=== PATIENT | female | born 1955 | race Caucasian/White ===

== ENCOUNTER 2024-02-28 07:22 | Inpatient (IN) ==
--- NOTE | 2024-01-19 13:44 | PAT Medication Instructions ---
Medication Instructions Date of Service January 19, 2024 Home Medications coQ10 (ubiquinol) 200 mg capsule 200 mg PO QAM hydrochlorothiazide 50 mg tablet 50 mg PO QAM potassium chloride 20 mEq tablet,extended release 40 meq PO QAM ashwagandha root extract 300 mg tablet 1,400 mg PO QAM magnesium oxide 500 mg PO DAILY tramadol 50 mg tablet 50 mg PO BID Pain phentermine 37.5 mg capsule 37.5 mg PO QAM ibuprofen-diphenhydramine citrate 200 mg-38 mg tablet (Advil PM) 2 cap PO HS PRN Sleep MEDICATION INSTRUCTIONS: ASK your surgeon for instructions ibuprofen-diphenhydramine citrate 200 mg-38 mg tablet (Advil PM) 2 cap PO HS PRN Sleep STOP taking 2 weeks before surgery ashwagandha root extract 300 mg tablet 1,400 mg PO QAM coQ10 (ubiquinol) 200 mg capsule 200 mg PO QAM DO NOT take the morning of surgery magnesium oxide 500 mg PO DAILY hydrochlorothiazide 50 mg tablet 50 mg PO QAM potassium chloride 20 mEq tablet,extended release 40 meq PO QAM Take morning of surgery With a small sip of water, OTHERWISE NOTHING TO EAT OR DRINK AFTER MIDNIGHT: tramadol 50 mg tablet 50 mg PO BID Pain Take evening before surgery tramadol 50 mg tablet 50 mg PO BID Pain Other Notes STOP TAKING 5 DAYS BEFORE SURGERY: phentermine 37.5 mg capsule 37.5 mg PO QAM If you have any questions please call us at [phone] or [phone] or [phone] or [phone]
--- NOTE | 2024-01-28 11:28 | Anesthesiology Consultation ---
Date of Service January 28, 2024 Assessment & Plan (1) Encounter for pre-operative examination: - Infectious disease screening: Per assessment on 01/28/24: No known recent infectious disease contacts or current infectious disease symptoms. - Phentermine instructions: Patient made aware to hold 5 days prior to surgery. - Anesthesia concern: Patient states that with remote back surgery, she was "out of it" after surgery (even when she returned home). States she believes it was related to reaction of medications used perioperatively and the psych meds that she was on at the time (which she states have since been discontinued). She wanted anesthesia to be aware of previous reaction. - Patient acceptable risk for surgery pending surgeon-ordered PCP clearance (Dr. Puckett, appt 02/17). History Surgery Operation Date: 02/28/24 09:45 Proposed Procedures p L4-S1 Decompression and Fusion, Hardware Removal L5-S1 - Pawel Mayberry, Height/Weight Height: 5 ft 4 in Weight: 78.2 kg Allergies Allergy/AdvReac Type Severity Reaction Status Date / Time codeine Allergy Mild Chills, Verified 01/26/24 10:40 "couldn't move" lorazepam AdvReac Mild "Couldn't Verified 01/26/24 10:40 focus, out of it" Medications Home Medications Medication Instructions Recorded Confirmed Last Taken coQ10 (ubiquinol) 200 mg capsule 200 mg PO QAM 08/05/22 01/19/24 Unknown hydrochlorothiazide 50 mg tablet 50 mg PO QAM 08/05/22 01/19/24 Unknown potassium chloride 20 mEq 40 meq PO QAM 08/05/22 01/19/24 Unknown tablet,extended release ashwagandha root extract 300 mg 1,400 mg PO QAM 10/13/23 01/19/24 Unknown tablet magnesium oxide 500 mg PO DAILY 10/13/23 01/19/24 Unknown tramadol 50 mg tablet 50 mg PO BID Pain 10/13/23 01/19/24 Unknown phentermine 37.5 mg capsule 37.5 mg PO QAM 10/27/23 01/19/24 Unknown ibuprofen-diphenhydramine citrate 2 cap PO HS PRN Sleep 01/19/24 01/19/24 Unknown 200 mg-38 mg tablet (Advil PM) Past Medical History Medical History Anxiety Depression Dyslipidemia Fibromyalgia GERD (gastroesophageal reflux disease) Hearing deficit "lost her hearing aide" History of kidney stones History of migraine Ocular History of pulmonary embolism "following a spinal tap" No problems since History of TMJ disorder No clicking/locking HLD (hyperlipidemia) Hx of sleep apnea Patient had trouble tolerating device- no current device IBS (irritable bowel syndrome) Obesity Overactive bladder Neurostimulator in place Presence of neurostimulator Bladder (present) Will bring remote dos Spinal stenosis Thyroid nodule no issues Exercise / Class Metabolic Activity III < 4 Walking/Shop/Light housework (one FS: No CP, no SOB) Past Surgical History Surgical History History of Achilles tendon repair (2014) left History of anesthesia reaction Reaction several years ago: wakes up emotional, depressed, anxious > "feels like I can't breathe" History of cervical spinal surgery (2014) C6-7 History of colonoscopy History of hysterectomy History of laparoscopy x2 for endometriosis History of lithotripsy (1989) History of lumbar fusion (2016) L5-S1 History of lumpectomy Right breast - benign History of placement of ear tubes History of shoulder surgery Right History of surgery Interstim Therapy History of tonsillectomy Hx of LASIK Slow to wake up after anesthesia Past Anesthesia History No Family Hx of Anesthesia Complications and Other (Slow to wake, wakes up emotional, depressed, anxious > "feels like I can't breathe") History of PONV No Hx of PONV and No Hx of Motion Sickness Social History Smoking Status: Never smoker Do You Dip or Chew Tobacco: No Hx Alcohol Use: Yes alcohol intake frequency: a few times a month Hx Substance Use: No substance use type: does not use Review of Systems Ongoing intermittent episodes of shortness of breath over the past 2+ years. Signficant workup including pulmonary evaluation, PFTs, stress test, echo unremarkable. At baseline. Patient denies chest pain, fever, chills, cough, wheezing, palpitations. Physical Exam Vital Signs BP 116/68 P 64 TEMP 98.0 SP02 96%RA RESP 16 Physical Full cervical extension range of motion. Full TMJ range of motion. TMD 3 finger breaths Mallampati Score III Dentition: missing sides/molars Lungs: clear throughout to auscultation Cardiac: regular rate and rhythm, no murmurs noted Spine: normal Carotid arteries: negative bruit Extremities: no LE edema Lab Results Anesthesia Preop Results Results Anesthesia Widget: WBC 5.42 K/ul (4.8-10.8) 01/28/24 Hgb 15.4 g/dl (12.0-16.0) 01/28/24 Hct 47.7 % (37.0-47.0) H 01/28/24 Plt 295 K/uL (130-400) 01/28/24 Na 139 mmol/L (136-145) 01/28/24 K 4.4 mmol/L (3.5-5.1) 01/28/24 Cl 102 mmol/L (98-107) 01/28/24 CO2 30 mmol/L (21-32) 01/28/24 BUN 15 mg/dl (6-23) 01/28/24 Creat 0.74 mg/dl (0.6-1.2) 01/28/24 Glucose Level 90 mg/dl (70-99(Fasting)) 01/28/24 PT 10.9 Seconds (9.0-12.0) 01/28/24 PTT 28 Seconds (21-31) 01/28/24 INR 1.0 (0.9-1.1) 01/28/24 Urine Color Yellow 01/28/24 Urine Appearance Clear (Clear) 01/28/24 Urine pH 6.5 (4.5-7.5) 01/28/24 Urine Specific Ideal 1.007 (1.000-1.030) 01/28/24 Urine Protein Negative (Negative) 01/28/24 Urine Glucose (UA) Negative (Negative) 01/28/24 Urine Ketones Negative (Negative) 01/28/24 Urine Blood Negative (Negative) 01/28/24 Urine Nitrite Negative (Negative) 01/28/24 Urine Bilirubin Negative (Negative) 01/28/24 Urine Urobilinogen Negative (Negative) 01/28/24 Urine Leukocyte Esterase Negative (Negative) 01/28/24 Blood Type O Positive 01/28/24 Antibody Screen NEGATIVE 01/28/24 Testing Electrocardiogram Date: 01/28/24 NSR at 63bpm. "Normal ECG" Chest X-Ray Date: 01/28/24 FINDINGS: No lines and tubes are seen. The cardiomediastinal silhouette is normal. The lungs are clear. No evidence of pleural effusion or pneumothorax. IMPRESSION: No acute chest disease. Echocardiogram Date: 08/05/22 EF 55-60% No LV wall motion abnormalities Grade I diastolic dysfunction No significant valvular pathology Stress Test Date: 08/05/22 Lexiscan MPHR 54% Not indicative of ischemia Negative for ischemia and/or prior infarction, no transient ischemic dilatation EF 72% Pulmonary Function Test Date: 07/15/22 No significant expiratory airflow obstruction No significant change in airflow following inhaled bronchodilator Maximum voluntary ventilation is normal No restrictive pulmonary process Flow volume loop has a normal configuration
[2024-02-28] MEDS: LACTATED RINGER'S 1,000 ML IV SCH ×2 (07:50→13:05)
[2024-02-28] MEDS: CeleBREX 200 MG CAP PO SCH (07:50)
[2024-02-28] MEDS: GABAPENTIN 300 MG CAP PO SCH (07:50)
[2024-02-28] MEDS: LR 60ML/HR IV SCH (07:51)
[2024-02-28] MEDS ORDERED: MIDAZOLAM HCL 1 MG/ML 2ML VIAL ONE (08:07)
[2024-02-28] MEDS ORDERED: HYDROmorphone INJ 2 MG/ML SYR/VIAL ONE (08:07)
[2024-02-28] MEDS ORDERED: LIDOCAINE 2% 2 ML VIAL/AMP(20MG/ML) INFIL ONE (08:09)
[2024-02-28] MEDS ORDERED: ROCURONIUM BROMIDE 10 MG/ML 5 ML VIAL IV ONE ×2 (08:09→09:29)
[2024-02-28] MEDS ORDERED: PROPOFOL IV EMULSION 10 MG/ML 20 ML VIAL IV ONE (08:09)
[2024-02-28] MEDS ORDERED: GLYCOPYRROLATE 0.2 MG/ML VIAL ONE (08:09)
[2024-02-28] MEDS ORDERED: ONDANSETRON INJ 2 MG/ML 2 ML VIAL ONE (08:09)
[2024-02-28] MEDS ORDERED: DEXAMETHASONE SOD INJ 4 MG/ML VIAL ONE (08:09)
[2024-02-28] MEDS ORDERED: ePHEDrine sulfate 50 MG/ML AMP IV PRN ×2 (08:26→11:50)
[2024-02-28] MEDS ORDERED: ONDANSETRON INJ 2 MG/ML 2 ML VIAL IV PRN ×2 (08:26→13:18)
[2024-02-28] MEDS ORDERED: ATROPINE SULFATE 0.1 MG/ML 10ML SYR IV PRN ×2 (08:26→11:50)
--- NOTE | 2024-02-28 08:36 | History & Physical Bridge Note ---
Date of Service February 28, 2024 History & Physical Bridge Note I have examined the patient, reviewed the History & Physical and in the interval since the performance of the History & Physical I have noted the following changes of clinical significance: no changes noted
--- NOTE | 2024-02-28 08:37 | History & Physical Report ---
Date of Service February 28, 2024 Assessment & Plan (1) Neurogenic claudication due to lumbar spinal stenosis: Plan: L4-S1 decompression and fusion, hardware removal L5-S1 History of Present Illness Chief Complaint: Back and leg pain Primary Care Provider: Johan Puckett This is a 68-year-old female who presents with worsening back and bilateral leg pain after failing course of nonoperative care she is here for surgical invention. Allergies Allergy/AdvReac Type Severity Reaction Status Date / Time codeine Allergy Mild Chills, Verified 02/28/24 07:39 "couldn't move" lorazepam AdvReac Mild "Couldn't Verified 02/28/24 07:39 focus, out of it" Home Medications Medication Instructions Recorded Confirmed Type coQ10 (ubiquinol) 200 mg capsule 200 mg PO QAM 08/05/22 01/19/24 History hydrochlorothiazide 50 mg tablet 50 mg PO QAM 08/05/22 01/19/24 History potassium chloride 20 mEq 40 meq PO QAM 08/05/22 02/28/24 History tablet,extended release ashwagandha root extract 300 mg 1,400 mg PO QAM 10/13/23 01/19/24 History tablet magnesium oxide 500 mg PO DAILY 10/13/23 01/19/24 History tramadol 50 mg tablet 50 mg PO BID Pain 10/13/23 02/28/24 History phentermine 37.5 mg capsule 37.5 mg PO QAM 10/27/23 01/19/24 History ibuprofen-diphenhydramine citrate 2 cap PO HS PRN Sleep 01/19/24 01/19/24 History 200 mg-38 mg tablet (Advil PM) Past Med/Surg History Problem List (Updated 02/28/24 @ 08:36 by Pawel Mayberry DO) Neurogenic claudication due to lumbar spinal stenosis Overweight with body mass index (BMI) 25.0-29.9 Dyslipidemia Encounter for pre-operative examination Cervical stenosis of spinal canal (Acute) Medical History Anxiety Depression Dyslipidemia Fibromyalgia GERD (gastroesophageal reflux disease) Hearing deficit "lost her hearing aide" History of kidney stones History of migraine Ocular History of pulmonary embolism 1990s "following a spinal tap" No problems since History of TMJ disorder No clicking/locking HLD (hyperlipidemia) Hx of sleep apnea Patient had trouble tolerating device- no current device IBS (irritable bowel syndrome) Obesity Overactive bladder Neurostimulator in place Presence of neurostimulator Bladder (present) Will bring remote dos Spinal stenosis Thyroid nodule no issues Surgical History History of Achilles tendon repair (2014) left History of anesthesia reaction Reaction several years ago: wakes up emotional, depressed, anxious > "feels like I can't breathe" History of cervical spinal surgery (2014) C6-7 History of colonoscopy History of hysterectomy History of laparoscopy x2 for endometriosis History of lithotripsy (1989) History of lumbar fusion (2016) L5-S1 History of lumpectomy Right breast - benign History of placement of ear tubes History of shoulder surgery Right History of surgery Interstim Therapy History of tonsillectomy Hx of LASIK Slow to wake up after anesthesia Social History Smoking Status: Never smoker Second Hand Exposure: No; Do You Dip or Chew Tobacco: No; Tobacco Cessation Education Requested by Patient: No Hx Alcohol Use: Yes Hx Substance Use: No Preferred Language: Armenian Communication Ability: Effective Pipe Tester Required: No Beliefs That Will Affect Care: None Current Living Situation: Spouse Other Information That Helps Us Care for You: No Feels Safe at Home: Yes Safety Concerns: Feels Safe At This Time Assistive Devices: Contacts, Glasses and Hearing Aid - Bilateral Assistive Devices Comment: lost hearing aides Physical Exam Physical Exam: Patient is alert and oriented Heart regular in rhythm lungs clear Results & Data Results & Data Vital Signs (Past 12 Hours) Vital Signs Temp Pulse Resp BP Pulse Ox O2 Del Method 02/28/24 07:44 36.4 C L 75 20 134/69 98 Room Air
[2024-02-28] MEDS: ceFAZolin 2000MG 2,000 MG/15 ML SYR IV SCH ×2 (09:10→17:18)
[2024-02-28] MEDS ORDERED: SUGAMMADEX SODIUM 200 MG/2 ML VIAL IV ONE (09:28)
[2024-02-28] MEDS: BUPIVACAINE/EPINEPHRINE 0.25% 1:200,000 30 ML VIAL ONE (09:36)
[2024-02-28] MEDS ORDERED: PHENYLEPHRINE 100MCG/ML 10ML SYR IV ONE (09:45)
[2024-02-28] MEDS ORDERED: ePHEDrine sulfate 50 MG/5 ML SYR ONE (10:11)
[2024-02-28] MEDS ORDERED: SODIUM CHLORIDE 0.9% PF INJ 10 ML VIAL ONE (10:12)
[2024-02-28] MEDS: FLOSEAL HEMOSTATIC MATRIX 10ML TOP ONE (10:40)
[2024-02-28] MEDS: ceFAZolin 330 MG/ML 1 GM VIAL ONE (10:51)
--- NOTE | 2024-02-28 11:05 | Operative Report ---
Post Operative Report Pre & Post Diagnosis Operation Date: 02/28/24 09:05 Pre-Op Diagnosis: Neurogenic claudication due to lumbar spinal stenosis Spondylolisthesis L4-L5 Post-Op Diagnosis: Same I identified the patient and participated in the time-out.: Yes Procedure Operation Date: 02/28/24 09:05 Actual Procedures #1 removal of instrumentation L5-S1. #2 exploration of fusion L5-S1. #3 lumbar decompression with bilateral medial facetectomies and foraminotomies L3-L4 L4- L5. #4 posterior spinal fusion L4-5 per #5 placement of posterior instrumenta tion L4-S1. #6 interbody fusion L4-L5. #7 placement of Spira 11 x 26 mm x 2 at L4-5. #8 placement locally harvested morselized autograft in the posterior gutters. #9 placement infuse collagen sponge combined with Koros in the posterior lateral gutters and os design bone graft interbody space. #10 placement of versa wrap on exposed dura. Surgeon Pawel Mayberry, DO Stenotype Operator Yajaira Carpenter Estimated Blood Loss 50 Findings Consistent with Post-Op Diagnosis Specimens None Indications This is a 68-year-old female who presents above-mentioned diagnosis after failing course of nonoperative care she is here for surgical invention. Description of Procedure Patient met with identified informed consent obtained. Patient was then taken to the operative suite underwent patient placed in a prone position on the Kleber table top the Fernando frame. All bony promises well-padded eyes inspected to ensure no external pressure placed upon them. This point the lumbar spine was prepped and draped in normal sterile fashion. Sharp dissection with assistance of Bovie cautery was performed down to and exposing the lamina and transverse processes of L4 and instrumentation at L5 and S1 levels bilaterally. I then proceeded to remove the hardware. Explored the fusion mass noting it to be mature and intact. Informed complete laminectomy of L4 including bilateral medial facetectomies and foraminotomies addressing severe lateral recess and foraminal disease. This also included partial laminectomy of all 3 with bilateral medial facetectomies for complete decompression of the subarticular disease. Pedicle screws were then placed in L4-L5 and S1 levels bilaterally with assistance of fluoroscopy. By way of a transforaminal approach on the right a discectomy of L4-L5 was performed endplates guarded to subcortical bleeding bone and 11 x 26 mm Spira cage filled with os design bone graft tapped in position. Then proceeded to the left transforaminal region at L4-L5. I discectomy performed endplates guarded to subcortical mean bone and a second 11 x 26 mm spiral cage filled with Oxyzyme tapped in position. Appropriate size rods were then placed compressed locked into position bilaterally. The transverse processes of L4-L5 burred to subcortical bleeding bone. Infuse collagen sponge combined with Koros and local autograft placed in the posterior lateral gutters. Of versa wrap placed over the exposed dura. 15 round WILMER drain inserted. The incision was then closed with 1 Vicryl to fascia 2-0 Vicryl subcutaneously and 4-0 Monocryl for final skin closure. Steri-Strips sterile dressing placed. Patient waken taken PACU stable condition. Please note spinal cord monitoring was utilized at the procedure no changes noted. Lastly Yajaira Carpenter was present out the entire procedure and brought the patient positioning complex portions of the surgery and final skin closure. Im ordering 20 grams of Triple [place] Collagen Powder ([employer] Grow (FIG) [id number]) to treat an incision wound that was caused by a spine procedure. The incision is approximately 2 cm(W) x 4 cm(L) into the joint (D) in size and is a full thickness wound. Triple [place] collagen comes in 1 gram packets so 20 packets were ordered. Given the size of the wound, with light to moderate exudate I chose to order a 20 day supply. The patient will be provided instructions for proper application of the collagen wound kit. The patient will be asked to apply the collagen powder daily and then cover it with sterile dressings dispensed. Collagen was selected as I expect the collagen to attract monocytes and fibroblasts, act as a sacrificial substrate for MMPs, and ultimately proved a matrix for tissue and vessel growth. The collagen will act as a primary dressing in this scenario. It is medically necessary for proper healing of these wounds to improve bioavailability and contact with each wound surface, this is also to help prevent infection of wounds and promote healing ultimately leading to a better healing outcome and limit the risk of infection. I attest to the content of the Intraoperative Record and any orders documented therein. Any exceptions are noted below.
[2024-02-28] MEDS: fentaNYL citrate PF 100 MCG/2 ML VIAL IV PRN (11:27)
[2024-02-28] MEDS: HYDROmorphone INJ 2 MG/ML SYR/VIAL IV PRN (11:52)
[2024-02-28] MEDS: HYDROmorphone INJ 2 MG/ML SYR/VIAL ONE (12:06)
--- NOTE | 2024-02-28 12:34 | Anesthesiology Progress Note ---
Date of Service February 28, 2024 Anesthesia Post Procedure Vital Signs Vital Signs: Temp Pulse Pulse Resp BP Pulse Ox O2 Del Method 02/28/24 12:20 73 12 102/66 92 Nasal Cannula 02/28/24 12:10 76 17 108/59 L 99 Nasal Cannula 02/28/24 12:00 79 17 104/73 100 Nasal Cannula 02/28/24 11:50 61 18 117/63 100 Nasal Cannula 02/28/24 11:40 85 19 117/47 L 98 Nasal Cannula 02/28/24 11:30 81 14 127/74 98 Nasal Cannula 02/28/24 11:20 71 14 118/57 L 96 Oxymask 02/28/24 11:12 97.5 F L 64 17 111/58 L 98 Oxymask 02/28/24 07:44 97.5 F L 75 20 134/69 98 Room Air O2 Flow Rate 02/28/24 12:20 4 02/28/24 12:10 4 02/28/24 12:00 4 02/28/24 11:50 4 02/28/24 11:40 4 02/28/24 11:30 4 02/28/24 11:20 6 02/28/24 11:12 6 02/28/24 07:44 Pain Intensity Back: Pain Intensity: 6 Transfer of Care Handoff Completed per policy Notes Mental Status: alert / awake / arousable and participated in evaluation Patient Amnestic to Procedure: Yes Nausea / Vomiting: adequately controlled Pain: adequately controlled and improving with treatment Airway Patency, RR, SpO2: stable & adequate BP & HR: stable & adequate Hydration State: stable & adequate Anesthetic Complications: no major complications apparent and Pt Satisfied with anesthetic care
[2024-02-28] MEDS ORDERED: NALOXONE HCL 0.4 MG/1 ML VIAL/CARP IV PRN (13:18)
[2024-02-28] MEDS ORDERED: ALUMINUM/MAGNESIUM SUSP 30 ML UDC PO PRN (13:18)
[2024-02-28] MEDS ORDERED: hydrOXYzine HCl 25 MG TAB PO PRN (13:18)
[2024-02-28] MEDS ORDERED: ACETAMINOPHEN 500 MG TAB PO PRN (13:18)
[2024-02-28] MEDS ORDERED: METOCLOPRAMIDE HCL INJ 5 MG/ML 2 ML VIAL IV PRN (13:18)
[2024-02-28] MEDS ORDERED: SOD PHOSPHATE/SOD BIPHOSPHATE ENEMA 132 ML BTL PR PRN (13:18)
[2024-02-28] MEDS ORDERED: ONDANSETRON 4 MG OD TAB PO PRN (13:18)
[2024-02-28] MEDS ORDERED: bisacodyL 10 MG SUPP PR PRN (13:18)
[2024-02-28] MEDS ORDERED: PROMETHAZINE 12.5 MG/50.5 ML BAG IV PRN (13:18)
[2024-02-28] MEDS ORDERED: DO NOT ADMINISTER FLU VACCINE PRN (13:18)
[2024-02-28] MEDS ORDERED: FAMOTIDINE 20 MG TAB PO PRN (13:18)
[2024-02-28] MEDS ORDERED: MAGNESIUM HYDROXIDE SUSP 30 ML UDC PO PRN (13:18)
[2024-02-28] MEDS ORDERED: DO NOT ADMINISTER PNEUMOCOCCAL VACCINE PRN (13:18)
[2024-02-28] MEDS ORDERED: HYDROmorphone INJ 0.5 MG/0.5 ML SYR IV PRN (13:18)
--- NOTE | 2024-02-28 14:18 | Consultation ---
Date of Consultation February 28, 2024 Assessment & Plan (1) Neurogenic claudication due to lumbar spinal stenosis: (2) Dyslipidemia: This is a 68-year-old female who has a significant past medical history of hyperlipidemia, history of ocular migraine, JERMAIN, IBS, fibromyalgia, GERD, depression with anxiety and lumbar spinal stenosis who presents for elective lumbar procedure by Dr. Mayberry. Neurogenic claudication due to lumbar spinal stenosis status post L4-S1 lumbar decompression fusion with removal of hardware at L5-S1, POD #[address] Mayberry EBL 50 mL, WILMER drain 135 mL activity and therapy as per orthopedics encourage incentive spirometry monitor hemoglobin, pre op 15 Discussed with nurse who states prior to arrival on floor she received 100mcg fentanyl and 2mg Dilaudid which is contributing to her drowsy state, will monitor closely Hx of JERMAIN - not on device HLD - on coQ10 Hx of nephrolithiasis - on HCTZ, will hold in the perioperative period to avoid hypotension, she does not have HTN; she is also on potassium supplement, monitor bmp closely Fibromyalgia - continue home remedies DVT ppx: SCDS, per primary Dispo: per primary, likely to remain hospitalized 2 days FULL CODE PCP: Johan Puckett Pt was seen and examined in collaboration with Dr. Villanueva, please see addendum A total of 45 minutes was spent coordinating, documenting, and providing care for this patient excluding time spent in the performance of separately billed services. This included personally viewing all current laboratories and imaging studies, medication reconciliation, outpatient chart review, and discussion with specialists. Thank you for this consultation. We will follow the patient with you during their hospital stay. You can reach a member of the [facility] Hospitalist Team 25/01 via hospitalist role on tiger text. Supervising Physician Co-Signing Physician Notes Patient was seen and is status post lumbar spinal surgery, POD 0, For medical management. Patient sitting up in bed, on 4.5 L oxygen nasal cannula, reports operative site pain under control, cannot comment on the RLE greater than LLE radicular signs and symptoms yet. Patient denies any recent febrile illness. Labs in AM, pain management/bowel regimen. DVT prophylaxis and PT OT per primary team. Watch out for acute blood loss anemia. Continue home medications as able. On exam: GENERAL: Alert and oriented x3. NAD, on 3.5 L NC O2. HEENT: No pallor, no icterus. Pupils equal, round and reactive to light. Oral mucosa moist. NECK: No JVD, no neck masses. HEART: S1 and S2 heard. Regular rate and rhythm. No murmur, no gallop. RESPIRATORY SYSTEM: Normal AP diameter. No accessory muscle use. No wheezing, no crackles. ABDOMEN: Soft, bowel sounds present, nontender, no distention. CENTRAL NERVOUS SYSTEM: No facial droop. Speech is clear. Obeys simple commands. Moves extremities. EXTREMITIES: No edema, no erythema seen. Distal NV status wnl. Lower back w/ dressing c/d/i. WILMER drain w/ minimal serosanguineous outs. I have seen and examined the patient and have discussed the case with the provider above. I agree with the assessment and plan as stated. History of Present Illness Requesting Physician: Dr. Mayberry Reason for Consultation: Post op medical management Attending Physician: Pawel Mayberry, DO History of Present Illness This is a 68-year-old female who has a significant past medical history of hyperlipidemia, history of ocular migraine, JERMAIN, IBS, fibromyalgia, GERD, depression with anxiety and lumbar spinal stenosis who presents for elective lumbar procedure by Dr. Mayberry. She underwent an L4-S1 lumbar decompression fusion and L5-S1 hardware removal by Dr. Mayberry today. Her primary care provider is Dr. Johan Puckett. Postoperatively she has no acute complaints She remains pretty drowsy. Prior to my visit she states she was having a lot of pain but recently got pain medication and is feeling better. She denies any preoperative saddle anesthesia or bowel or bladder incontinence. She denies any recent fever, chills, sweats, lightheadedness, dis-, chest pain, shortness, nausea, vomiting or abdominal pain. She tolerated some clear liquids postoperatively. Allergies Allergy/AdvReac Type Severity Reaction Status Date / Time codeine Allergy Mild Chills, Verified 02/28/24 07:39 "couldn't move" lorazepam AdvReac Mild "Couldn't Verified 02/28/24 07:39 focus, out of it" Home Medications Medication Instructions Recorded Confirmed Type coQ10 (ubiquinol) 200 mg capsule 200 mg PO QAM 08/05/22 01/19/24 History hydrochlorothiazide 50 mg tablet 50 mg PO QAM 08/05/22 01/19/24 History potassium chloride 20 mEq 40 meq PO QAM 08/05/22 02/28/24 History tablet,extended release bjorna root extract 300 mg 1,400 mg PO QAM 10/13/23 01/19/24 History tablet magnesium oxide 500 mg PO DAILY 10/13/23 01/19/24 History tramadol 50 mg tablet 50 mg PO BID Pain 10/13/23 02/28/24 History ibuprofen-diphenhydramine citrate 2 cap PO HS PRN Sleep 01/19/24 01/19/24 History 200 mg-38 mg tablet (Advil PM) oxycodone 5 mg tablet 5 mg PO Q6H PRN pain #30 tabs 02/28/24 Rx tramadol 50 mg tablet 50 mg PO Q6H PRN pain, moderate 02/28/24 Rx #30 tabs Patient History Medical History IBS (irritable bowel syndrome) Dyslipidemia History of migraine Ocular Hx of sleep apnea Patient had trouble tolerating device- no current device Obesity Presence of neurostimulator Bladder (present) Will bring remote dos Fibromyalgia Overactive bladder Neurostimulator in place History of kidney stones GERD (gastroesophageal reflux disease) Thyroid nodule no issues History of TMJ disorder No clicking/locking Hearing deficit "lost her hearing aide" Depression HLD (hyperlipidemia) History of pulmonary embolism "following a spinal tap" No problems since Anxiety Spinal stenosis Surgical History History of anesthesia reaction Reaction several years ago: wakes up emotional, depressed, anxious > "feels like I can't breathe" Slow to wake up after anesthesia History of laparoscopy x2 for endometriosis History of shoulder surgery Right Hx of LASIK History of placement of ear tubes History of tonsillectomy History of Achilles tendon repair (2014) left History of lumpectomy Right breast - benign History of hysterectomy History of cervical spinal surgery (2014) C6-7 History of lumbar fusion (2016) L5-S1 History of surgery Interstim Therapy History of lithotripsy (1989) History of colonoscopy Social History Smoking Status: Never smoker Second Hand Exposure: No; Do You Dip or Chew Tobacco: No; Tobacco Cessation Education Requested by Patient: No Hx Alcohol Use: Yes Hx Substance Use: No Preferred Language: Liberian Communication Ability: Effective 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 Beliefs That Will Affect Care: None Current Living Situation: Spouse Other Information That Helps Us Care for You: No Feels Safe at Home: Yes Safety Concerns: Feels Safe At This Time Assistive Devices: Contacts, Glasses and Hearing Aid - Bilateral Assistive Devices Comment: lost hearing aides Review of Systems Review of Systems: All systems reviewed & are unremarkable except as noted in HPI & below Physical Exam Physical Exam: Constitutional: WD/WN, vitals as above, NAD, sitting up in bed, drowsy, somnolent, answers questions approp Head: Normocephalic, Atraumatic Eyes: PERRL, conjunctivae normal, anicteric sclerae ENMT: external ear and nose normal, oropharynx normal dry membranes Neck: trachea midline, no thyromegaly normal visual inspection Respiratory: normal respiratory effort, lungs clear to auscultation, no wheeze, rales, rhonchi. Normal insp/exp effort, no accessory muscle use Cardiovascular: RRR, no murmur, no edema Vessels: no JVD or carotid bruit Chest: normal inspection of chest Abdomen: normal bowel sounds, soft, nontender, no hepatosplenomegaly Musculoskeletal: no cyanosis or clubbing, AROM x 4 Skin: no rashes, warm and dry normal turgor , lumbar dressing CDI, WILMER drain with serosang drainage Neurologic: no face palsy, no dysarthria CN's II-XI intact bilaterally and moves all extremities Psychiatric: A+Ox3, euthymic affect : deferred Results & Data Vital Signs (Past 12 Hours) Vital Signs Temp Pulse Pulse Resp BP Pulse Ox O2 Del Method 02/28/24 14:00 71 15 114/75 95 Nasal Cannula 02/28/24 13:30 77 16 105/66 99 Nasal Cannula 02/28/24 13:00 Nasal Cannula 02/28/24 13:00 37.3 C 81 18 105/57 L 100 Nasal Cannula 02/28/24 12:50 65 14 117/66 94 Nasal Cannula 02/28/24 12:40 65 17 136/69 95 Nasal Cannula 02/28/24 12:30 36.3 C L 66 14 105/65 98 Nasal Cannula 02/28/24 12:20 73 12 102/66 92 Nasal Cannula 02/28/24 12:10 76 17 108/59 L 99 Nasal Cannula 02/28/24 12:00 79 17 104/73 100 Nasal Cannula 02/28/24 11:50 61 18 117/63 100 Nasal Cannula 02/28/24 11:40 85 19 117/47 L 98 Nasal Cannula 02/28/24 11:30 81 14 127/74 98 Nasal Cannula 02/28/24 11:20 71 14 118/57 L 96 Oxymask 02/28/24 11:12 36.4 C L 64 17 111/58 L 98 Oxymask 02/28/24 07:44 36.4 C L 75 20 134/69 98 Room Air O2 Flow Rate 02/28/24 14:00 4.0 02/28/24 13:30 02/28/24 13:00 4 02/28/24 13:00 4 02/28/24 12:50 4 02/28/24 12:40 4 02/28/24 12:30 4 02/28/24 12:20 4 02/28/24 12:10 4 02/28/24 12:00 4 02/28/24 11:50 4 02/28/24 11:40 4 02/28/24 11:30 4 02/28/24 11:20 6 02/28/24 11:12 6 02/28/24 07:44 Laboratory Results preoperative lab work reviewed and independently interpreted by myself from 01/28/24 including CBC, BMP, PT/INR, PTT and urinalysis. Diagnostic Findings Preoperative chest x-ray reviewed and independently interpreted by myself which was negative for any acute disease on 01/28/24 Medications Administered Current Inpatient Medications Acetaminophen (Acetaminophen 500 Mg Tab) 1,000 mg PO Q8H PRN PRN Reason: MILD Pain Scale 1,2,3 & Pre PT Stop: 03/29/24 13:17 Al Hydrox/Mg Hydrox/Simethicone (Aluminum/Magnesium Susp 30 Ml Udc) 30 ml PO Q6H PRN PRN Reason: Dyspepsia Stop: 03/29/24 13:17 Atropine Sulfate (Atropine Sulfate 0.1 Mg/Ml 10ml Syr) 0.5 mg IV Q1M PRN PRN Reason: PACU Use-HR<40 &/or Bradycardi Stop: 02/28/24 16:26 Atropine Sulfate (Atropine Sulfate 0.1 Mg/Ml 10ml Syr) 0.5 mg IV Q1M PRN PRN Reason: PACU Use-HR<40 &/or Bradycardi Stop: 02/28/24 19:50 Bisacodyl (Bisacodyl 10 Mg Supp) 10 mg [place] DAILY PRN PRN Reason: Constipation Stop: 03/29/24 13:17 Celecoxib (Celebrex 200 Mg Cap) 200 mg PO PREOP ANDERSON Stop: 02/28/24 18:00 Last Admin: 02/28/24 07:50 Dose: 200 mg Diphenhydramine HCl (Diphenhydramine Capsule 25 Mg Cap) 25 mg PO Q6H PRN PRN Reason: Allergic Rhinitis/Insomnia Stop: 03/29/24 13:17 Ephedrine Sulfate (Ephedrine Sulfate 50 Mg/Ml Amp) 5 mg IV Q5M PRN PRN Reason: PACU Use Only-SBP<90 mmHg Stop: 02/28/24 16:26 Ephedrine Sulfate (Ephedrine Sulfate 50 Mg/Ml Amp) 5 mg IV Q5M PRN PRN Reason: PACU Use Only-SBP<90 mmHg Stop: 02/28/24 19:50 Famotidine (Famotidine 20 Mg Tab) 20 mg PO Q12H PRN PRN Reason: Dyspepsia Stop: 03/29/24 13:17 Gabapentin (Gabapentin 300 Mg Cap) 300 mg PO PREOP ANDERSON Stop: 02/28/24 18:00 Last Admin: 02/28/24 07:50 Dose: 300 mg Hydrochlorothiazide (Hydrochlorothiazide 25 Mg Tab) 50 mg PO QAM ANDERSON Stop: 03/30/24 08:59 Hydromorphone HCl (Hydromorphone Inj 0.5 Mg/0.5 Ml Syr) 0.5 mg IV Q3H PRN PRN Reason: MODERATE Pain (Scale 4,5,6) & Pre PT Stop: 03/13/24 13:17 Hydromorphone HCl (Hydromorphone Inj 1 Mg/Ml Syringe) 1 mg IV Q3H PRN PRN Reason: SEVERE Pain (Scale 7,8,9,10) Stop: 03/13/24 13:17 Hydroxyzine HCl (Hydroxyzine Hcl 25 Mg Tab) 25 mg PO Q8H PRN PRN Reason: Anxiety Stop: 03/29/24 13:17 Lactated Ringer's (Lr) 1,000 mls @ 15 mls/hr IV .Q24H ANDERSON Stop: 02/29/24 05:59 Last Infusion: 02/28/24 09:06 Dose: Infused Lactated Ringer's (Lr) 1,000 mls @ 60 mls/hr IV .[id number] ANDERSON Stop: 02/28/24 22:39 Last Admin: 02/28/24 07:51 Dose: Not Given Cefazolin Sodium (Ancef 2000mg) 2,000 mg in 15 mls @ 3.75 mls/min IV PREOP ANDERSON; Protocol Stop: 02/28/24 18:00 Last Admin: 02/28/24 09:10 Dose: 3.75 mls/min Lactated Ringer's (Lr) 1,000 mls @ 100 mls/hr IV .Q10H ANDERSON Stop: 03/29/24 13:17 Last Admin: 02/28/24 13:05 Dose: 100 mls/hr Acetaminophen (Ofirmev) 1,000 mg in 100 mls @ 400 mls/hr IV Q8H PRN PRN Reason: Pain Rating 1-3 & Pre PT Stop: 02/29/24 13:19 Cefazolin Sodium (Ancef 2000mg) 2,000 mg in 15 mls @ 3.75 mls/min IV Q8H ANDERSON; Protocol Stop: 02/29/24 01:03 Promethazine HCl (Phenergan) 12.5 mg in 50.5 mls @ 202 mls/hr IV Q6H PRN PRN Reason: Nausea And Vomiting Stop: 03/29/24 13:17 Dexamethasone 6 mg/ Syringe 1.5 mls @ 1 mls/min IV DAILY [facility] Stop: 03/02/24 09:02 Influenza Virus Vaccine Quadrival (Do Not Administer Flu Vaccine) 1 each N/A PRN PRN PRN Reason: Notification Stop: 03/29/24 13:17 Magnesium Hydroxide (Magnesium Hydroxide Susp 30 Ml Udc) 30 ml PO Q24H PRN PRN Reason: Constipation Stop: 03/29/24 13:17 Magnesium Oxide (Magnesium Oxide 400 Mg Tab) 400 mg PO DAILY [facility] Stop: 03/30/24 08:59 Metoclopramide HCl (Metoclopramide Hcl Inj 5 Mg/Ml 2 Ml Vial) 10 mg IV Q6H PRN PRN Reason: Nausea &/or Vomiting Stop: 03/29/24 13:17 Miscellaneous (Phentermine 37.5 Mg Capsule ~ Order Awaiting Action) 1 each N/A QS ANDERSON Stop: 03/29/24 15:59 Naloxone HCl (Naloxone Hcl 0.4 Mg/1 Ml Vial/Carp) 0.1 mg IV Q5M PRN PRN Reason: Oversedation/Resp depression Stop: 03/29/24 13:17 Ondansetron HCl (Ondansetron Inj 2 Mg/Ml 2 Ml Vial) 4 mg IV ONCE PRN PRN Reason: PACU Use Only-Nausea/Vomiting Stop: 02/28/24 16:26 Ondansetron HCl (Ondansetron Inj 2 Mg/Ml 2 Ml Vial) 4 mg IV Q6H PRN PRN Reason: Nausea &/or Vomiting Stop: 03/29/24 13:17 Ondansetron HCl (Ondansetron 4 Mg Od Tab) 4 mg PO Q6H PRN PRN Reason: Nausea Stop: 03/29/24 13:17 Oxycodone HCl (Oxycodone Hcl Ir 5 Mg Tab (Immediate Release)) 5 - 10 mg PO Q4H PRN PRN Reason: Pain & Pre PT Stop: 03/13/24 13:17 Pneumococcal Polyvalent Vaccine (Do Not Administer Pneumococcal Vaccine) 1 each N/A PRN PRN PRN Reason: Notification Stop: 03/29/24 13:17 Polyethylene Glycol (Polyethylene (Miralax) 17 Gm Pack) 17 gm PO Q6 ANDERSON Stop: 03/30/24 05:59 Potassium Chloride (Potassium Chloride Crtab 20 Meq Tabcr) 40 meq PO QAM ANDERSON Stop: 03/30/24 08:59 Senna/Docusate Sodium (Docusate Sodium/Senna 50/8.6mg Tab) 2 tab PO HS ANDERSON Stop: 03/29/24 20:59 Sodium Biphosphate/Sodium Phosphate (Sod Phosphate/Sod Biphosphate Enema 132 Ml Btl) 132 ml [place] ONE PRN PRN Reason: Constipation Stop: 03/29/24 13:17 Tramadol HCl (Tramadol Hcl 50 Mg Tablet) 50 - 100 mg PO Q4H PRN PRN Reason: Moderate-Severe pain & Pre PT Stop: 03/29/24 13:17 ECG Additional Comments: I have independently reviewed and interpreted patient's admitting EKG which revealed: normal sinus rhythm, 63 bpm, no ST or T wave change, QTc 446 MS
--- NOTE | 2024-02-28 15:24 | Fluoroscopy Report ---
INTRAOPERATIVE RADIOGRAPHS CLINICAL HISTORY: Lumbar spinal fusion surgery. Fluoro time: 12 seconds Ka,r: 6.86 mGy FINDINGS: 2 spot fluoroscopic views of the lumbar spine are presented. There has been discectomy at L 4-L5 and L5-S1 with laminectomy and posterior fusion at L4-S1. Interpedicular screws are present at a ll levels. The orthopedic hardware appears intact. A sacral lead is in place. IMPRESSION: Intraoperative images from lumbar spinal fusion surgery as above. Electronically signed by: Benson Hu M.D. 02/28/2024 3:23 PM
[2024-02-28] MEDS: ACETAMINOPHEN 1,000 MG/100 ML VIAL IV PRN (19:48)
[2024-02-28] MEDS: oxyCODONE HCL IR 5 MG TAB (IMMEDIATE RELEASE) PO PRN (22:41)
[2024-02-28] MEDS: DOCUSATE SODIUM/SENNA 50/8.6MG TAB PO SCH (22:42)
[2024-02-29] MEDS: COUGH DROP (SUGAR FREE) LOZ 24 LOZ/1 BOX BUCCAL STA (01:22)
[2024-02-29] MEDS: HYDROmorphone INJ 1 MG/ML SYRINGE IV PRN (01:24)
[2024-02-29] MEDS: POLYETHYLENE (MIRALAX) 17 GM PACK PO SCH (05:16)
[2024-02-29 06:50] LABS: Basophils # (auto) 0.02 K/uL (0.00-0.20); Basophils % (auto) 0.1 %; Hematocrit (blood only) 37.1 % (37.0-47.0); Hemoglobin 12.3 g/dl (12.0-16.0); Immature Granulocytes # (auto) 0.09 K/uL (0.01-0.20); Immature Granulocytes % (auto) 0.6 %; Lymphocytes # (auto) 1.22 K/uL (1.20-3.40); Lymphocytes % (auto) 8.2 %; Mean Corpuscular Hemoglobin 30.8 pg (25.0-34.0); Mean Corpuscular Hgb Conc 33.2 g/dL (32.0-36.0); Mean Platelet Volume 9.8 fL (9.4-12.4); Monocytes # (auto) 0.84 K/uL (0.11-0.59); Monocytes % (auto) 5.7 %; Neutrophils # (auto) 12.66 K/uL (1.40-6.50); Neutrophils % (auto) 85.4 %; Platelet Count 243 K/uL (130-400); RDW Coefficient of Variation 12.3 % (11.5-14.5); RDW Standard Deviation 42.7 fL (36.4-46.3); Red Blood Count 3.99 M/uL (4.20-5.40); White Blood Count 14.83 K/ul (4.8-10.8)
[2024-02-29 07:02] LABS: BUN Creatinine Ratio 25.5 (10-20); Calcium 8.9 mg/dl (8.6-10.3); Creatinine Clr Calc Pharmacy 102.3 ml/min; Est GFR (African American) 113.3 ml/min; Est GFR (Non-African American) 97.7 ml/min
[2024-02-29] MEDS ORDERED: NON-FORMULARY MEDICATION (Coq10 (Ubiquinol) 200 mg Capsule) PO SCH (09:00)
[2024-02-29] MEDS: dexAMETHasone 6 MG in SYRINGE 0 ML IV SCH (09:04)
[2024-02-29] MEDS: POTASSIUM CHLORIDE CRTAB 20 MEQ TABCR PO SCH (09:04)
[2024-02-29] MEDS: MAGNESIUM OXIDE 400 MG TAB PO SCH (09:05)
--- NOTE | 2024-02-29 10:12 | Orthopedic Progress Note ---
Date of Service February 29, 2024 Assessment & Plan (1) Neurogenic claudication due to lumbar spinal stenosis: Plan: This time initiate physical therapy monitor WILMER operatively discharged home next few days. Admission and Anticipated Discharge Date Admission Date: February 28, 2024 Subjective Back pain controlled leg pain improved Physical Exam Physical Exam: Patient seen in bed. She is comfortable. Is good strength testing. Results & Data Vital Signs (Past 12 Hours) Vital Signs Temp Pulse Resp BP Pulse Ox O2 Del Method O2 Flow Rate 02/29/24 08:09 36.7 C 73 16 110/62 99 Nasal Cannula 2.0 02/29/24 04:00 36.7 C 81 18 101/55 L 99 Nasal Cannula 2 02/28/24 23:02 36.5 C 98 H 18 114/65 98 Nasal Cannula 2
--- NOTE | 2024-02-29 12:54 | Hospitalist Progress Note ---
<Statement entered by Maciej Saavedra, DO - 02/29/24 14:47> I have seen and examined the patient and have discussed the case with the provider above. I have reviewed the advanced practitioner's documentation, and I agree with, and take responsibility for that plan of care. 7 minutes spent on evaluation patient coordination of care Plan of care as outlined below Date of Service February 29, 2024 Assessment & Plan (1) Neurogenic claudication due to lumbar spinal stenosis: (2) Dyslipidemia: Plan: This is a 68-year-old female who has a significant past medical history of hyperlipidemia, history of ocular migraine, JERMAIN, IBS, fibromyalgia, GERD, depression with anxiety and lumbar spinal stenosis who presents for elective lumbar procedure by Dr. Mayberry. Neurogenic claudication due to lumbar spinal stenosis status post L4-S1 lumbar decompression fusion with removal of hardware at L5-S1, POD #[address] Mayberry EBL 50 mL, BHARAT drain 285 mL activity and therapy as per orthopedics encourage incentive spirometry monitor hemoglobin, pre op 15 Hx of JERMAIN - not on device, still requiring O2, she reports she was desaturating overnight so they put her on more O2, she reports her CPAP is not working and she is having issues getting a new one. Will order nocturnal sleep study to determine if she requires O2 at home to bridge her til she gets device HLD - on coQ10 Hx of nephrolithiasis - on HCTZ, will hold in the perioperative period to avoid hypotension, she does not have HTN; she is also on potassium supplement, monitor bmp closely Fibromyalgia - continue home remedies DVT ppx: SCDS, per primary Dispo: per primary, likely to remain hospitalized 2 days FULL CODE PCP: Johan Puckett I spent a total of 46 minutes coordinating, documenting, and providing care for this patient excluding time spent in the performance of separately billed services. Thank you for this consultation. We will follow the patient with you during their hospital stay. You can reach a member of the [facility] Hospitalist Team 25/01 via hospitalist role on tiger text. Admission and Anticipated Discharge Date Admission Date: February 28, 2024 Subjective Pt was seen and examined in room 321-1. F/U lumbar surgery. She feels well today. She still has numbness to her feet b/l. She had a lot of pain last night. She reports good appetite and passing gas. She denies f/c/s, chest pain, sob, n/v/d, abd pain. She states her one tooth is chipped and she states it occurred during surgery. Review of Systems Review of Systems: All systems reviewed & are unremarkable except as noted in HPI & below Physical Exam Physical Exam: Gen: WD/WN, NAD, A&O x3 HEENT: Normocephalic, atraumatic, conjunctivae moist, sclerae anicteric, mucous membranes moist. Lung: Clear to Auscultation bilaterally, no wheezes/rales/rhonchi Heart: Regular rate, regular rhythm, no murmurs, rubs, or gallops Abdomen: Soft, NT, ND +BS x 4 Extremities: No edema. lumbar dressing CDI, bharat drainage serosanguineous Skin: Warm, no rash, negative turgor. : Lara - draining yellow urine Results & Data Results & Data Vital Signs (Past 12 Hours) Vital Signs Temp Pulse Resp BP Pulse Ox O2 Del Method O2 Flow Rate 02/29/24 11:46 36.7 C 76 16 105/69 94 Room Air 02/29/24 08:30 Room Air 02/29/24 08:09 36.7 C 73 16 110/62 99 Nasal Cannula 2.0 02/29/24 04:00 36.7 C 81 18 101/55 L 99 Nasal Cannula 2 Laboratory Results Short CBC 02/29/24 Range/Units 06:17 WBC 14.83 H (4.8-10.8) K/ul Hgb 12.3 (12.0-16.0) g/dl Hct 37.1 (37.0-47.0) % Plt Count 243 (130-400) K/uL BMP 02/29/24 06:17 Sodium 140 Potassium 4.0 Chloride 105 Carbon Dioxide 30 BUN 14 Creatinine 0.55 L Glucose 113 H Calcium 8.9 I have independently reviewed and interpreted patient's labs cbc, bmp Medications Administered Current Inpatient Medications Acetaminophen (Acetaminophen 500 Mg Tab) 1,000 mg PO Q8H PRN PRN Reason: MILD Pain Scale 1,2,3 & Pre PT Stop: 03/29/24 13:17 Al Hydrox/Mg Hydrox/Simethicone (Aluminum/Magnesium Susp 30 Ml Udc) 30 ml PO Q6H PRN PRN Reason: Dyspepsia Stop: 03/29/24 13:17 Bisacodyl (Bisacodyl 10 Mg Supp) 10 mg [place] DAILY PRN PRN Reason: Constipation Stop: 03/29/24 13:17 Diphenhydramine HCl (Diphenhydramine Capsule 25 Mg Cap) 25 mg PO Q6H PRN PRN Reason: Allergic Rhinitis/Insomnia Stop: 03/29/24 13:17 Famotidine (Famotidine 20 Mg Tab) 20 mg PO Q12H PRN PRN Reason: Dyspepsia Stop: 03/29/24 13:17 Hydrochlorothiazide (Hydrochlorothiazide 25 Mg Tab) 50 mg PO QAM ANDERSON Stop: 03/30/24 08:59 Hydromorphone HCl (Hydromorphone Inj 0.5 Mg/0.5 Ml Syr) 0.5 mg IV Q3H PRN PRN Reason: MODERATE Pain (Scale 4,5,6) & Pre PT Stop: 03/13/24 13:17 Hydromorphone HCl (Hydromorphone Inj 1 Mg/Ml Syringe) 1 mg IV Q3H PRN PRN Reason: SEVERE Pain (Scale 7,8,9,10) Stop: 03/13/24 13:17 Last Admin: 02/29/24 05:18 Dose: 1 mg Hydroxyzine HCl (Hydroxyzine Hcl 25 Mg Tab) 25 mg PO Q8H PRN PRN Reason: Anxiety Stop: 03/29/24 13:17 Acetaminophen (Ofirmev) 1,000 mg in 100 mls @ 400 mls/hr IV Q8H PRN PRN Reason: Pain Rating 1-3 & Pre PT Stop: 02/29/24 13:19 Last Infusion: 02/28/24 20:04 Dose: Infused Promethazine HCl (Phenergan) 12.5 mg in 50.5 mls @ 202 mls/hr IV Q6H PRN PRN Reason: Nausea And Vomiting Stop: 03/29/24 13:17 Dexamethasone 6 mg/ Syringe 1.5 mls @ 1 mls/min IV DAILY ANDERSON Stop: 03/02/24 09:02 Last Admin: 02/29/24 09:04 Dose: 1 mls/min Influenza Virus Vaccine Quadrival (Do Not Administer Flu Vaccine) 1 each N/A PRN PRN PRN Reason: Notification Stop: 03/29/24 13:17 Magnesium Hydroxide (Magnesium Hydroxide Susp 30 Ml Udc) 30 ml PO Q24H PRN PRN Reason: Constipation Stop: 03/29/24 13:17 Magnesium Oxide (Magnesium Oxide 400 Mg Tab) 400 mg PO DAILY [facility] Stop: 03/30/24 08:59 Last Admin: 02/29/24 09:35 Dose: Not Given Metoclopramide HCl (Metoclopramide Hcl Inj 5 Mg/Ml 2 Ml Vial) 10 mg IV Q6H PRN PRN Reason: Nausea &/or Vomiting Stop: 03/29/24 13:17 Naloxone HCl (Naloxone Hcl 0.4 Mg/1 Ml Vial/Carp) 0.1 mg IV Q5M PRN PRN Reason: Oversedation/Resp depression Stop: 03/29/24 13:17 Ondansetron HCl (Ondansetron Inj 2 Mg/Ml 2 Ml Vial) 4 mg IV Q6H PRN PRN Reason: Nausea &/or Vomiting Stop: 03/29/24 13:17 Ondansetron HCl (Ondansetron 4 Mg Od Tab) 4 mg PO Q6H PRN PRN Reason: Nausea Stop: 03/29/24 13:17 Oxycodone HCl (Oxycodone Hcl Ir 5 Mg Tab (Immediate Release)) 5 - 10 mg PO Q4H PRN PRN Reason: Pain & Pre PT Stop: 03/13/24 13:17 Last Admin: 02/29/24 09:03 Dose: 10 mg Pneumococcal Polyvalent Vaccine (Do Not Administer Pneumococcal Vaccine) 1 each N/A PRN PRN PRN Reason: Notification Stop: 03/29/24 13:17 Polyethylene Glycol (Polyethylene (Miralax) 17 Gm Pack) 17 gm PO Q6 ANDERSON Stop: 03/30/24 05:59 Last Admin: 02/29/24 12:02 Dose: 17 gm Potassium Chloride (Potassium Chloride Crtab 20 Meq Tabcr) 40 meq PO QAM ANDERSON Stop: 03/30/24 08:59 Last Admin: 02/29/24 09:04 Dose: 40 meq Senna/Docusate Sodium (Docusate Sodium/Senna 50/8.6mg Tab) 2 tab PO HS ANDERSON Stop: 03/29/24 20:59 Last Admin: 02/28/24 22:42 Dose: 2 tab Sodium Biphosphate/Sodium Phosphate (Sod Phosphate/Sod Biphosphate Enema 132 Ml Btl) 132 ml [place] ONE PRN PRN Reason: Constipation Stop: 03/29/24 13:17 Tramadol HCl (Tramadol Hcl 50 Mg Tablet) 50 - 100 mg PO Q4H PRN PRN Reason: Moderate-Severe pain & Pre PT Stop: 03/29/24 13:17
[2024-02-29] MEDS: traMADol HCL 50 MG TABLET PO PRN (13:51)
[2024-03-01 07:49] LABS: Basophils # (auto) 0.03 K/uL (0.00-0.20); Basophils % (auto) 0.2 %; Hematocrit (blood only) 39.9 % (37.0-47.0); Hemoglobin 12.9 g/dl (12.0-16.0); Immature Granulocytes # (auto) 0.12 K/uL (0.01-0.20); Immature Granulocytes % (auto) 0.9 %; Lymphocytes # (auto) 2.23 K/uL (1.20-3.40); Lymphocytes % (auto) 15.9 %; Mean Corpuscular Hemoglobin 31.2 pg (25.0-34.0); Mean Corpuscular Hgb Conc 32.3 g/dL (32.0-36.0); Mean Corpuscular Volume 96.4 fL (80.0-100.0); Mean Platelet Volume 9.9 fL (9.4-12.4); Monocytes # (auto) 0.78 K/uL (0.11-0.59); Monocytes % (auto) 5.6 %; Neutrophils # (auto) 10.87 K/uL (1.40-6.50); Neutrophils % (auto) 77.4 %; Platelet Count 241 K/uL (130-400); RDW Coefficient of Variation 12.8 % (11.5-14.5); RDW Standard Deviation 45.7 fL (36.4-46.3); Red Blood Count 4.14 M/uL (4.20-5.40); White Blood Count 14.03 K/ul (4.8-10.8)
[2024-03-01] MEDS: diphenhydrAMINE Capsule 25 MG CAP PO PRN (07:51)
[2024-03-01 08:11] LABS: BUN Creatinine Ratio 22.4 (10-20); Calcium 9.2 mg/dl (8.6-10.3); Est GFR (African American) 111.3 ml/min; Est GFR (Non-African American) 96.1 ml/min; Potassium 4.2 mmol/L (3.5-5.1)
--- NOTE | 2024-03-01 10:01 | Orthopedic Progress Note ---
Date of Service March 01, 2024 Assessment & Plan (1) Neurogenic claudication due to lumbar spinal stenosis: Plan: At this time we will continue physical therapy monitor WILMER output anticipate discharge home tomorrow. Admission and Anticipated Discharge Date Admission Date: February 28, 2024 Subjective Back pain is controlled leg pain improved. Physical Exam Physical Exam: Patient is ambulating halls. She has excellent posture. Distracted testing. Results & Data Vital Signs (Past 12 Hours) Vital Signs Temp Pulse Pulse Resp BP Pulse Ox Pulse Ox 03/01/24 07:52 36.6 C 75 18 96/58 L 98 03/01/24 03:25 70 97 02/29/24 22:32 73 97 O2 Del Method O2 Del Method 03/01/24 07:52 Room Air 03/01/24 03:25 Room Air 02/29/24 22:32 Room Air
--- NOTE | 2024-03-01 10:42 | Communication Note ---
Date of Service: March 01, 2024 Patient examined at bedside POD #2 s/p L4-S1 lumbar decompression fusion with removal of hardware at L5-S1. Pt c/o dental changes recognized post operativ david. Pt reports a roughness and chipped sensation on the 5th tooth from her right of her mandibular dentition. On examination, no gross deformity noted. However, pt maintains that there is an obvious change in texture in the tooth in question. Explained the possible mechanism of the injury to the patient and the process which she should follow to have it addressed as an outpatient. Pt endorsed understanding of the plan. Niels COOPER
--- NOTE | 2024-03-01 11:49 | Hospitalist Progress Note ---
Date of Service March 01, 2024 Assessment & Plan (1) Neurogenic claudication due to lumbar spinal stenosis: (2) Dyslipidemia: Plan: This is a 68-year-old female who has a significant past medical history of hyperlipidemia, history of ocular migraine, JERMAIN, IBS, fibromyalgia, GERD, depression with anxiety and lumbar spinal stenosis who presents for elective lumbar procedure by Dr. Mayberry. Neurogenic claudication due to lumbar spinal stenosis status post L4-S1 lumbar decompression fusion with removal of hardware at L5-S1, POD #[address] Mayberry EBL 50 mL, BHARAT drain 285 mL activity and therapy as per orthopedics encourage incentive spirometry monitor hemoglobin, pre op 15 Hx of JERMAIN - not on device, she has since been able to be weaned off oxygen. We discussed importance of her following up to ensure she gets a new machine, but she states it will be some time for this to happen. Nocturnal sleep study done last night and despite pt only sleeping 3 hours it still showed she desaturated to qualify for nocturnal oxygen . Script will be written. This is to bridge her til she is able to return on CPAP. HLD - on coQ10 Hx of nephrolithiasis - on HCTZ, will hold in the perioperative period to avoid hypotension, she does not have HTN; she is also on potassium supplement, monitor bmp closely Fibromyalgia - continue home remedies DVT ppx: SCDS, per primary Dispo: per primary, likely to remain hospitalized 2 days FULL CODE PCP: Johan Puckett I spent a total of 46 minutes coordinating, documenting, and providing care for this patient excluding time spent in the performance of separately billed services. Thank you for this consultation. We will follow the patient with you during their hospital stay. You can reach a member of the [facility] Hospitalist Team 25/01 via hospitalist role on tiger text. Admission and Anticipated Discharge Date Admission Date: February 28, 2024 Supervising Physician Co-Signing Physician Notes 03/01/2024 The patient was seen and examined in medical floor She has been feeling much better Denies any significant pain and her numbness and tingling has been improving On examination Blood pressure noted to be low at 96/58 without any symptoms Although physical examinations are unremarkable Her labs, medications and imaging studies reviewed Status post L4-S1 decompression fusion Remains medically stable with other medical conditions as documented above Agree with assessment plan as outlined above by Maryellen Trejo PA-C and take the full responsibility of the patient care Total time spent in documentation was [address] Komal Patel Subjective Pt was seen and examined in room 321-1. F/U lumbar surgery. She is very tired today and wants to take a nap. She has only had 3 hrs of sleep both nights. She was worked up because so many people were in her room this morning. She denies f/c/s, chest pain, sob, n/v/d. She completed sleep study last night. Review of Systems Review of Systems: All systems reviewed & are unremarkable except as noted in HPI & below Physical Exam Physical Exam: Gen: WD/WN, NAD, A&O x3 HEENT: Normocephalic, atraumatic, conjunctivae moist, sclerae anicteric, mucous membranes moist. Lung: Clear to Auscultation bilaterally, no wheezes/rales/rhonchi Heart: Regular rate, regular rhythm, no murmurs, rubs, or gallops Abdomen: Soft, NT, ND +BS x 4 Extremities: No edema. lumbar dressing CDI, bharat drainage serosanguineous Skin: Warm, no rash, negative turgor. Results & Data Results & Data Vital Signs (Past 12 Hours) Vital Signs Temp Pulse Pulse Resp BP Pulse Ox Pulse Ox 03/01/24 07:52 36.6 C 75 18 96/58 L 98 03/01/24 03:25 70 97 O2 Del Method O2 Del Method 03/01/24 07:52 Room Air 03/01/24 03:25 Room Air Diagnostic Findings oximetry test reviewed and independently interpreted by myself. Medications Administered Current Inpatient Medications Acetaminophen (Acetaminophen 500 Mg Tab) 1,000 mg PO Q8H PRN PRN Reason: MILD Pain Scale 1,2,3 & Pre PT Stop: 03/29/24 13:17 Al Hydrox/Mg Hydrox/Simethicone (Aluminum/Magnesium Susp 30 Ml Udc) 30 ml PO Q6H PRN PRN Reason: Dyspepsia Stop: 03/29/24 13:17 Bisacodyl (Bisacodyl 10 Mg Supp) 10 mg NV DAILY PRN PRN Reason: Constipation Stop: 03/29/24 13:17 Diphenhydramine HCl (Diphenhydramine Capsule 25 Mg Cap) 25 mg PO Q6H PRN PRN Reason: Allergic Rhinitis/Insomnia Stop: 03/29/24 13:17 Last Admin: 03/01/24 07:51 Dose: 25 mg Famotidine (Famotidine 20 Mg Tab) 20 mg PO Q12H PRN PRN Reason: Dyspepsia Stop: 03/29/24 13:17 Hydrochlorothiazide (Hydrochlorothiazide 25 Mg Tab) 50 mg PO QAM [facility] Stop: 03/30/24 08:59 Hydromorphone HCl (Hydromorphone Inj 0.5 Mg/0.5 Ml Syr) 0.5 mg IV Q3H PRN PRN Reason: MODERATE Pain (Scale 4,5,6) & Pre PT Stop: 03/13/24 13:17 Hydromorphone HCl (Hydromorphone Inj 1 Mg/Ml Syringe) 1 mg IV Q3H PRN PRN Reason: SEVERE Pain (Scale 7,8,9,10) Stop: 03/13/24 13:17 Last Admin: 02/29/24 05:18 Dose: 1 mg Hydroxyzine HCl (Hydroxyzine Hcl 25 Mg Tab) 25 mg PO Q8H PRN PRN Reason: Anxiety Stop: 03/29/24 13:17 Promethazine HCl (Phenergan) 12.5 mg in 50.5 mls @ 202 mls/hr IV Q6H PRN PRN Reason: Nausea And Vomiting Stop: 03/29/24 13:17 Dexamethasone 6 mg/ Syringe 1.5 mls @ 1 mls/min IV DAILY [facility] Stop: 03/02/24 09:02 Last Admin: 03/01/24 07:53 Dose: 1 mls/min Influenza Virus Vaccine Quadrival (Do Not Administer Flu Vaccine) 1 each N/A PRN PRN PRN Reason: Notification Stop: 03/29/24 13:17 Magnesium Hydroxide (Magnesium Hydroxide Susp 30 Ml Udc) 30 ml PO Q24H PRN PRN Reason: Constipation Stop: 03/29/24 13:17 Magnesium Oxide (Magnesium Oxide 400 Mg Tab) 400 mg PO DAILY [facility] Stop: 03/30/24 08:59 Last Admin: 03/01/24 07:54 Dose: 400 mg Metoclopramide HCl (Metoclopramide Hcl Inj 5 Mg/Ml 2 Ml Vial) 10 mg IV Q6H PRN PRN Reason: Nausea &/or Vomiting Stop: 03/29/24 13:17 Naloxone HCl (Naloxone Hcl 0.4 Mg/1 Ml Vial/Carp) 0.1 mg IV Q5M PRN PRN Reason: Oversedation/Resp depression Stop: 03/29/24 13:17 Ondansetron HCl (Ondansetron Inj 2 Mg/Ml 2 Ml Vial) 4 mg IV Q6H PRN PRN Reason: Nausea &/or Vomiting Stop: 03/29/24 13:17 Ondansetron HCl (Ondansetron 4 Mg Od Tab) 4 mg PO Q6H PRN PRN Reason: Nausea Stop: 03/29/24 13:17 Oxycodone HCl (Oxycodone Hcl Ir 5 Mg Tab (Immediate Release)) 5 - 10 mg PO Q4H PRN PRN Reason: Pain & Pre PT Stop: 03/13/24 13:17 Last Admin: 03/01/24 11:13 Dose: 10 mg Pneumococcal Polyvalent Vaccine (Do Not Administer Pneumococcal Vaccine) 1 each N/A PRN PRN PRN Reason: Notification Stop: 03/29/24 13:17 Polyethylene Glycol (Polyethylene (Miralax) 17 Gm Pack) 17 gm PO Q6 [facility] Stop: 03/30/24 05:59 Last Admin: 03/01/24 05:48 Dose: 17 gm Potassium Chloride (Potassium Chloride Crtab 20 Meq Tabcr) 40 meq PO QAM [facility] Stop: 03/30/24 08:59 Last Admin: 03/01/24 07:54 Dose: 40 meq Senna/Docusate Sodium (Docusate Sodium/Senna 50/8.6mg Tab) 2 tab PO HS [facility] Stop: 03/29/24 20:59 Last Admin: 02/29/24 19:46 Dose: 2 tab Sodium Biphosphate/Sodium Phosphate (Sod Phosphate/Sod Biphosphate Enema 132 Ml Btl) 132 ml NV ONE PRN PRN Reason: Constipation Stop: 03/29/24 13:17 Tramadol HCl (Tramadol Hcl 50 Mg Tablet) 50 - 100 mg PO Q4H PRN PRN Reason: Moderate-Severe pain & Pre PT Stop: 03/29/24 13:17 Last Admin: 03/01/24 07:50 Dose: 100 mg
--- NOTE | 2024-03-02 08:09 | Discharge Summary ---
Date of Service March 02, 2024 Admission HPI Per Admitting Provider This is a 68-year-old female who presents with worsening back and bilateral leg pain after failing course of nonoperative care she is here for surgical invention. Admission Exam Per Admitting Provider GENERAL: Alert and oriented x3. NAD, on 3.5 L NC O2. HEENT: No pallor, no icterus. Pupils equal, round and reactive to light. Oral mucosa moist. NECK: No JVD, no neck masses. HEART: S1 and S2 heard. Regular rate and rhythm. No murmur, no gallop. RESPIRATORY SYSTEM: Normal AP diameter. No accessory muscle use. No wheezing, no crackles. ABDOMEN: Soft, bowel sounds present, nontender, no distention. CENTRAL NERVOUS SYSTEM: No facial droop. Speech is clear. Obeys simple commands. Moves extremities. EXTREMITIES: No edema, no erythema seen. Distal NV status wnl. Lower back w/ dressing c/d/i. WILMER drain w/ minimal serosanguineous outs. Discharge Data Allergies Allergy/AdvReac Type Severity Reaction Status Date / Time codeine Allergy Mild Chills, Verified 02/28/24 07:39 "couldn't move" lorazepam AdvReac Mild "Couldn't Verified 02/28/24 07:39 focus, out of it" Consultations 02/28/24 13:18 Consult Hospitalist Routine Procedures Performed Operation Date: 02/28/24 09:05 Actual Procedures p L4-S1 Decompression and Fusion, Spinal Cord Monitoring(Not Applicable) - Pawel Mayberry DO s L5-S1 Hardware Removal,(Not Applicable) - Pawel Mayberry DO Ordered Studies 02/28/24 09:05 FL lumbar spine 2-3V Routine Hospital Course (1) Neurogenic claudication due to lumbar spinal stenosis: (2) Dyslipidemia: This is a 68-year-old female who has a significant past medical history of hyperlipidemia, history of ocular migraine, JERMAIN, IBS, fibromyalgia, GERD, depression with anxiety and lumbar spinal stenosis who presents for elective lumbar procedure by Dr. Mayberry. Neurogenic claudication due to lumbar spinal stenosis status post L4-S1 lumbar decompression fusion with removal of hardware at L5-S1, POD #[address] Mayberry EBL 50 mL, WILMER drain 285 mL activity and therapy as per orthopedics encourage incentive spirometry monitor hemoglobin, pre op 15 Hx of JERMAIN - not on device, she has since been able to be weaned off oxygen. We discussed importance of her following up to ensure she gets a new machine, but she states it will be some time for this to happen. Nocturnal sleep study done last night and despite pt only sleeping 3 hours it still showed she desaturated to qualify for nocturnal oxygen . Script will be written. This is to bridge her til she is able to return on CPAP. HLD - on coQ10 Hx of nephrolithiasis - on HCTZ, will hold in the perioperative period to avoid hypotension, she does not have HTN; she is also on potassium supplement, monitor bmp closely Fibromyalgia - continue home remedies DVT ppx: SCDS, per primary Dispo: per primary, likely to remain hospitalized 2 days FULL CODE PCP: Johan Puckett I spent a total of 46 minutes coordinating, documenting, and providing care for this patient excluding time spent in the performance of separately billed services. Thank you for this consultation. We will follow the patient with you during their hospital stay. You can reach a member of the [facility] Hospitalist Team 25/01 via hospitalist role on tiger text. Discharge Plan Discharge Items Patient Disposition: Home - Self-Care Reason For Visit: Lumbar Spine Pain, Spinal Stenosis of Lumbar Regio Discharge Diagnosis: Lumbar spinal stenosis with neurogenic claudication Activity: As commented below Non-emergency contact: Primary Care Provider Call non-emergency contact if: you have any medication questions Follow-up/Referrals: Johan Puckett [Primary Care Provider] - Diet: Regular Addtl Attending Provider Instructions: ACTIVITY RECOMMENDATIONS: SELF CARE INSTRUCTIONS AFTER THORACIC/LUMBAR FUSIONS 1. You may walk to your tolerance. It is good exercise for your legs and back. Expect some back and intermittent leg aches and pains. 2. You may perform "counter-top" level activities (make a sandwich, win with a project, etc.). 3. No bending or lifting of more than 10 pounds or back twisting of any nature (roll like a log when turning in bed). 4. You may ride in a car for 20-30 minutes at a time. No driving until after your first visit with your doctor. 5. Frequent changes of position and restricting sitting to 30 minutes at a time will help limit the amount of back spasms and stiffness you may experience. 6. You may discontinue the use of ambulatory aids (cane, crutches, etc.) once your strength and confidence allow. 7. You may marketing information analyst the shower and let water strike your incision when you arrive home at least once daily. Do not take a tub bath, sit in a hot tub or go into a swimming pool until after your first recheck in the office. SPECIAL CARE INSTRUCTIONS: VERY IMPORTANT TO READ AND REVIEW A. Your surgical incision has been closed with a cosmetic suture under the skin that will dissolve in about 6 weeks. In 14 days, you can use a pair of clean scissors and cut the suture that is left outside of the skin at the ends of your incision. 1. The small skin tapes can be removed 7 days after surgery if they have not fallen off by that point. 2. You may keep the wound open to air as much as possible to promote healing after post-op day number 5 unless told otherwise by your doctor. 3. If you think the wound looks like it is becoming infected (redness or worsening drainage) and/or you are experiencing fever, chill or worsening back pain and muscle spasms, contact the office so that we may evaluate you as soon as possible. B. Complications are uncommon, but please contact us if you have any signs or symptoms of: 1. wound infection (fever higher than 102.5 degrees F, redness, separation of wound, drainage, or increasing pain from the incision) 2. blood clots in legs (pain, swelling, redness and warmth in legs) 3. urinary tract infection (fever higher than 102.5 degrees F, burning upon urination or increased frequency of urination) 4. nerve problems (inability to walk on your toes or heels, numbness, loss of bowel or bladder control) 5. any other symptoms that concern you C. Please call the office at if you have any concerns or questions about your operation or recovery. D. No smoking! Smoking drastically decreases the chance of a solid fusion. E. Do not take any anti-inflammatory medications (Indocin, Advil, Motrin, Aspirin, Naprosyn, etc.) as these may inhibit the chance of a solid fusion. Tylenol is okay to take for pain. MANAGING PAIN AFTER SPINAL SURGERY 1. Narcotic medication is intended for short-term use and will be provided for surgical pain. Surgical pain usually lasts for a period of 4-6 weeks. Narcotic medication includes Percocet, Vicodin, Darvocet, Tylenol #3 or Lortab. 2. Longer-term pain is more appropriately treated with non-narcotic medication such as Tylenol ES. 3. Muscle spasm is not appropriately treated with narcotics. Muscle relaxers such as Soma, Flexeril or Skelaxin can be used along with Tylenol ES. 4. Remember that we all live with some "aches and pains". This is not unusual or uncommon after an injury or as we get older. a. Back pain is expected and may include muscle spasms for 4 to 6 weeks after surgery. The pain should gradually improve. If the pain worsens for no apparent reason, please contact the office. b. Intermittent leg pain may also be experienced and should not be concerned about unless it worsens for no apparent reason. If so, please contact the office. 5. We will provide appropriate medication within the normal guidelines of their prescribed use. We will also be very cautious and aware of potential abuse and extended duration of patients' medication needs. a. Pain medications are for your comfort and to assist with sleep and rest so that the tissue can heal. They are not provided in order to return to normal activity and should not be used through the day. To do so or worsening pain at night can result from ongoing tissue damage and development of tolerance to the prescribed medicine. 6. Please allow 2-3 days to process refills. Prescriptions will not be mailed but must be picked up at the office. FOLLOW UP VISIT: Keep your scheduled follow-up appointment. Any questions, please call the office at . Pending Studies at Discharge: No Stand-Alone Forms: My [facility], Smoking Cessation Medications and DC Order Prescriptions: New tramadol 50 mg tablet 50 mg PO Q6H PRN (Reason: pain, moderate) Qty: 30 0RF oxycodone 5 mg tablet 5 mg PO Q6H PRN (Reason: pain) Qty: 30 0RF Continued magnesium oxide 500 mg magnesium tablet 500 mg PO DAILY ashwagandha root extract 300 mg tablet 1,400 mg PO QAM hydrochlorothiazide 50 mg Tablet 50 mg PO QAM coQ10 (ubiquinol) 200 mg Capsule 200 mg PO QAM potassium chloride 20 mEq Tablet Extended Release 40 meq PO QAM tramadol 50 mg tablet 50 mg PO BID Advil PM 200-38 mg Tablet 2 cap PO HS PRN (Reason: Sleep) Admission Data Admit Date/Time: 02/28/24 11:09 Attending Provider: Pawel Mayberry Admit Provider: Pawel Mayberry Primary Care Provider: Johan Puckett Other Providers: Domitila Noriega; Maciej Saavedra; Mary Patel
--- NOTE | 2024-03-02 08:15 | Discharge Summary ---
Date of Service March 02, 2024 Admission HPI Per Admitting Provider This is a 68-year-old female who presents with worsening back and bilateral leg pain after failing course of nonoperative care she is here for surgical invention. Principal Diagnosis Lumbar spinal stenosis with neurogenic claudication Discharge Data Allergies Allergy/AdvReac Type Severity Reaction Status Date / Time codeine Allergy Mild Chills, Verified 02/28/24 07:39 "couldn't move" lorazepam AdvReac Mild "Couldn't Verified 02/28/24 07:39 focus, out of it" Consultations 02/28/24 13:18 Consult Hospitalist Routine Procedures Performed Operation Date: 02/28/24 09:05 Actual Procedures p L4-S1 Decompression and Fusion, Spinal Cord Monitoring(Not Applicable) - Pawel Mayberry DO s L5-S1 Hardware Removal,(Not Applicable) - Pawel Mayberry DO Ordered Studies 02/28/24 09:05 FL lumbar spine 2-3V Routine Hospital Course (1) Neurogenic claudication due to lumbar spinal stenosis: Patient underwent lumbar decompression patient tolerated this well was taken to orthopedic for postoperative. Postop patient progressed appropriate. WILMER drain decreasing. Extra strength testing. Pain well-controlled. Subsequent discharge home. Discharge orders instructions from the chart for further review. Total Time Total Time Spent Total Time Spent (In Minutes): 20 minutes Discharge Plan Discharge Items Patient Disposition: Home - Self-Care Reason For Visit: Lumbar Spine Pain, Spinal Stenosis of Lumbar Regio Discharge Diagnosis: Lumbar spinal stenosis with neurogenic claudication Activity: As commented below Non-emergency contact: Primary Care Provider Call non-emergency contact if: you have any medication questions Follow-up/Referrals: Johan Puckett [Primary Care Provider] - Diet: Regular Addtl Attending Provider Instructions: ACTIVITY RECOMMENDATIONS: SELF CARE INSTRUCTIONS AFTER THORACIC/LUMBAR FUSIONS 1. You may walk to your tolerance. It is good exercise for your legs and back. Expect some back and intermittent leg aches and pains. 2. You may perform "counter-top" level activities (make a sandwich, win with a project, etc.). 3. No bending or lifting of more than 10 pounds or back twisting of any nature (roll like a log when turning in bed). 4. You may ride in a car for 20-30 minutes at a time. No driving until after your first visit with your doctor. 5. Frequent changes of position and restricting sitting to 30 minutes at a time will help limit the amount of back spasms and stiffness you may experience. 6. You may discontinue the use of ambulatory aids (cane, crutches, etc.) once your strength and confidence allow. 7. You may water inspector the shower and let water strike your incision when you arrive home at least once daily. Do not take a tub bath, sit in a hot tub or go into a swimming pool until after your first recheck in the office. SPECIAL CARE INSTRUCTIONS: VERY IMPORTANT TO READ AND REVIEW A. Your surgical incision has been closed with a cosmetic suture under the skin that will dissolve in about 6 weeks. In 14 days, you can use a pair of clean scissors and cut the suture that is left outside of the skin at the ends of your incision. 1. The small skin tapes can be removed 7 days after surgery if they have not fallen off by that point. 2. You may keep the wound open to air as much as possible to promote healing after post-op day number 5 unless told otherwise by your doctor. 3. If you think the wound looks like it is becoming infected (redness or worsening drainage) and/or you are experiencing fever, chill or worsening back pain and muscle spasms, contact the office so that we may evaluate you as soon as possible. B. Complications are uncommon, but please contact us if you have any signs or symptoms of: 1. wound infection (fever higher than 102.5 degrees F, redness, separation of wound, drainage, or increasing pain from the incision) 2. blood clots in legs (pain, swelling, redness and warmth in legs) 3. urinary tract infection (fever higher than 102.5 degrees F, burning upon urination or increased frequency of urination) 4. nerve problems (inability to walk on your toes or heels, numbness, loss of bowel or bladder control) 5. any other symptoms that concern you C. Please call the office at if you have any concerns or questions about your operation or recovery. D. No smoking! Smoking drastically decreases the chance of a solid fusion. E. Do not take any anti-inflammatory medications (Indocin, Advil, Motrin, Aspir in, Naprosyn, etc.) as these may inhibit the chance of a solid fusion. Tylenol is okay to take for pain. MANAGING PAIN AFTER SPINAL SURGERY 1. Narcotic medication is intended for short-term use and will be provided for surgical pain. Surgical pain usually lasts for a period of 4-6 weeks. Narcotic medication includes Percocet, Vicodin, Darvocet, Tylenol #3 or Lortab. 2. Longer-term pain is more appropriately treated with non-narcotic medication such as Tylenol ES. 3. Muscle spasm is not appropriately treated with narcotics. Muscle relaxers such as Soma, Flexeril or Skelaxin can be used along with Tylenol ES. 4. Remember that we all live with some "aches and pains". This is not unusual or uncommon after an injury or as we get older. a. Back pain is expected and may include muscle spasms for 4 to 6 weeks after surgery. The pain should gradually improve. If the pain worsens for no apparent reason, please contact the office. b. Intermittent leg pain may also be experienced and should not be concerned about unless it worsens for no apparent reason. If so, please contact the office. 5. We will provide appropriate medication within the normal guidelines of their prescribed use. We will also be very cautious and aware of potential abuse and extended duration of patients' medication needs. a. Pain medications are for your comfort and to assist with sleep and rest so that the tissue can heal. They are not provided in order to return to normal activity and should not be used through the day. To do so or worsening pain at night can result from ongoing tissue damage and development of tolerance to the prescribed medicine. 6. Please allow 2-3 days to process refills. Prescriptions will not be mailed but must be picked up at the office. FOLLOW UP VISIT: Keep your scheduled follow-up appointment. Any questions, please call the office at . Pending Studies at Discharge: No Stand-Alone Forms: [facility] [employer], Smoking Cessation Medications and DC Order Prescriptions: New tramadol 50 mg tablet 50 mg PO Q6H PRN (Reason: pain, moderate) Qty: 30 0RF oxycodone 5 mg tablet 5 mg PO Q6H PRN (Reason: pain) Qty: 30 0RF Continued magnesium oxide 500 mg magnesium tablet 500 mg PO DAILY ashwagandha root extract 300 mg tablet 1,400 mg PO QAM hydrochlorothiazide 50 mg Tablet 50 mg PO QAM coQ10 (ubiquinol) 200 mg Capsule 200 mg PO QAM potassium chloride 20 mEq Tablet Extended Release 40 meq PO QAM tramadol 50 mg tablet 50 mg PO BID Advil PM 200-38 mg Tablet 2 cap PO HS PRN (Reason: Sleep) Discharge Orders: Discharge Order (Routine); Ordered 03/02/24 Ordered By: Pawel Mayberry Admission Data Admit Date/Time: 02/28/24 11:09 Attending Provider: Pawel Mayberry Admit Provider: Pawel Mayberry Primary Care Provider: Johan Puckett Other Providers: Domitila Noriega; Maciej Saavedra; Mary Patel
[2024-03-02] MEDS: hydroCHLOROthiazide 25 MG TAB PO SCH (08:16)
[2024-03-02 08:20] VITALS: BP 122/76; PULSE 72; O2SAT 99
--- NOTE | 2024-03-02 10:04 | Hospitalist Progress Note ---
Date of Service March 02, 2024 Assessment & Plan (1) Neurogenic claudication due to lumbar spinal stenosis: (2) Dyslipidemia: Plan This is a 68-year-old female who has a significant past medical history of hyperlipidemia, history of ocular migraine, JERMAIN, IBS, fibromyalgia, GERD, depression with anxiety and lumbar spinal stenosis who presents for elective lumbar procedure by Dr. Mayberry. Neurogenic claudication due to lumbar spinal stenosis status post L4-S1 lumbar decompression fusion with removal of hardware at L5-S1, POD #[address] Mayberry EBL 50 mL, WILMER drain 285 mL; decreased today. activity and therapy as per orthopedics encourage incentive spirometry; demonstrated appropriate use monitor hemoglobin, pre op 15; hgb holding 12.3-12.9 past two days. Plan for DC today per admitting team Hx of JERMAIN - not on device, she has since been able to be weaned off oxygen. We discussed importance of her following up to ensure she gets a new machine, but she states it will be some time for this to happen. Nocturnal sleep study done last night and despite pt only sleeping 3 hours it still showed she desaturated to qualify for nocturnal oxygen . Script will be written. This is to bridge her til she is able to return on CPAP. HLD - on coQ10 Hx of nephrolithiasis - on HCTZ, resume today as BP has normalized. Fibromyalgia - continue home remedies Disposition: DVT ppx: SCDs, per primary FULL CODE PCP: Johan Puckett I spent a total of 48 minutes coordinating, documenting, and providing care for this patient excluding time spent in the performance of separately billed services. We will follow the patient with you during their hospital stay. You can reach a member of the [facility] Hospitalist Team 25/01 via hospitalist role on tiger text. Admission and Anticipated Discharge Date Admission Date: February 28, 2024 Supervising Physician Co-Signing Physician Notes Attending addendum The patient was seen and examined in medical floor She has been stable without any significant symptoms She is awaiting to be discharged On examination Wandering in the room without any acute distress Hemodynamically stable Her labs, medications reviewed Status post lumbar decompression and fusion and remained medically stable to be discharged Added to the assessment and plan as outlined above by Abbie SNELL and take the full responsibility of the patient care in the hospital Dr. Charisse Patel Subjective Pt was seen and examined in room 321-1. She was sitting in her bed, dangling bedside. F/U lumbar surgery; she is feeling good - really stressed how good she is feeling. BP has improved and HCTZ resumed She denies f/c/s, chest pain, sob, n/v/d. She completed sleep study two nights ago; will f/u as opt for cpap Plan for DC today. Review of Systems Review of Systems: Neuro: (-) Falls, trauma, slurred speech HEENT: (-) BLANCO, dizziness, dysphagia, visual or auditory changes CV: (-) CP, palpitations, swelling Resp: (-) SOB GI: (-) appetite changes, N/V/D, bowel changes : (-) urinary changes Skin: (-) rashes Psych: (-) anxiety, depression Physical Exam Physical Exam: Neuro: AAOx4, PERRLA, no aphagia, memory changes, CNII-XII grossly intact HEENT: head normocephalic, moist mucus membranes CV: S1/S2, (-) M/G/R, (-) edema, cap refill < 3 seconds. WILMER drain seroussangenous drainage, decreasing in amount Resp: Lungs CTA in all lowe. On RA GI: Abdomen S/NT/ND, Ax4 bowel sounds, (-) CVA tenderness Musculoskeletal: 5/5 B/L UE strength, 5/5 B/L LE strength. No gait disturbance; uses a walker post op Skin: (-) rashes , (-) erythema. Psych: euthymic mood Results & Data Results & Data Vital Signs (Past 12 Hours) Vital Signs Pulse BP Pulse Ox O2 Del Method 03/02/24 08:19 72 122/76 99 Room Air
[2024-03-02 16:07] VITALS: RESP 18; TEMP 98.1
== END 2024-03-02 16:05 | disposition home or self-care (01) | DRG 455 ==
LOC: ASU 07:22 → 3E 11:09